=== PATIENT | male | born 1970 | race Caucasian/White ===

== ENCOUNTER 2017-10-23 08:57 | Emergency (ER) | payer BC ==
[2017-10-23] MEDS ORDERED: Albuterol 0.083% Inhal Sol (2.5 mg/3 mL) UD IH STA (10:08)
--- NOTE | 2017-10-23 10:33 | ED PDOC ---
Arrival/HPI - General Chief Complaint: Flu-like Symptoms Time Seen by Provider: 10/23/17 09:28 Historian: Patient - History of Present Illness Narrative History of Present Illness (Text): 10/23/17 10:33 A 47 year old male presents to the emergency department for evaluation of cold symptoms since yesterday. Patient reports symptoms associated with body aches, chills, mild headache and productive cough with yellow sputum. Patient denies any fever, drooling, shortness of breath, wheezing, abdominal pain, vomiting, diarrhea or any other complaints at this time. Time/Duration: Other (yesterday) Symptom Onset: Sudden Symptom Course: Unchanged Activities at Onset: Rest Context: Home Past Medical History - Provider Review Nursing Documentation Reviewed: Yes - Psychiatric Hx Substance Use: No - Anesthesia Hx Anesthesia: No Hx Anesthesia Reactions: No Hx Malignant Hyperthermia: No Family/Social History - Physician Review Nursing Documentation Reviewed: Yes Family/Social History: No Known Family HX Smoking Status: Never Smoked Hx Alcohol Use: Yes Frequency of alcohol use: Socially Hx Substance Use: No Allergies/Home Meds Allergies/Adverse Reactions: Allergies No Known Allergies Allergy (Verified 10/23/17 09:30) Review of Systems - Physician Review All systems were reviewed & negative as marked: Yes - Review of Systems Constitutional: Other (chills; body aches). absent: Fevers Respiratory: Cough (productive cough with yellow sputum). absent: SOB, Wheezing Gastrointestinal: absent: Abdominal Pain, Diarrhea, Vomiting Neurological: Headache (mild) Physical Exam Vital Signs Reviewed: Yes Vital Signs Temp Pulse Resp BP Pulse Ox 10/23/17 12:36 98.8 F 103 H 18 120/70 96 10/23/17 11:12 99.9 F H 138 H 20 119/72 96 10/23/17 11:00 99.9 F H 138 H 20 119/72 96 10/23/17 08:58 98.9 F 115 H 20 139/96 H 95 Temperature: Afebrile Blood Pressure: Hypertensive Pulse: Tachycardic Respiratory Rate: Normal Appearance: Positive for: Well-Appearing, Non-Toxic, Comfortable Pain Distress: Mild Mental Status: Positive for: Alert and Oriented X 3 - Systems Exam Head: Present: Normocephalic Conjunctiva: Present: Normal Ears: Present: NORMAL TM Mouth: Present: Moist Mucous Membranes Pharnyx: Present: ERYTHEMA (mild B/L). No: EXUDATE, TONSILS ENLARGED Nose (Internal): Present: Rhinorrhea (scant clear B/L with congestion) Neck: Present: Trachea Midline. No: Meningeal Signs, JVD, Bruit Respiratory/Chest: Present: Wheezes (scattered bibasilar wheezing). No: Respiratory Distress, Accessory Muscle Use, Decreased Breath Sounds, Rales, Rhonchi, Tachypneic Cardiovascular: Present: Regular Rate and Rhythm, Normal S1, S2. No: Murmurs Abdomen: Present: Normal Bowel Sounds. No: Tenderness, Distention, Peritoneal Signs, Rebound, Guarding Back: No: CVA Tenderness Upper Extremity: Present: Normal ROM Lower Extremity: Present: Normal ROM. No: Edema, CALF TENDERNESS Neurological: Present: GCS=15, Speech Normal Skin: Present: Warm, Dry, Normal Color. No: Rashes Psychiatric: Present: Alert, Oriented x 3, Normal Insight, Normal Concentration Medical Decision Making ED Course and Treatment: 10/23/17 10:31 Impression: A 47 year old male with body aches, chills, mild headache, productive cough and cold. Plan: -- chest xray -- Influenza A B -- Albuterol, Motrin, Prednisone -- Reassess and disposition Progress Notes: On re-eval, pt reports moderate improveemnt in sx after ED tx. Pt is afebrile, hemodynamicaly stable. Non-toxic. Tolerate Po well in ED. Neck: Supple, (-) meningeal sign ENT: no acute findings Lungs: CTA B/L, Bs equal B/L. Abd: benign. back: (-) CVA tenderness. Neurological intact. CXR review (-) consolidation Influenza A (+) Pt ahs clinical findings c/w influenza Pt advised,. ref. to f/u with PMD in 2-3 days for re-eavl. return to ED if any worsening or new changes. 10/23/17 12:30 chest xray: Creator : Henry Rodríguez MD IMPRESSION: No active disease. - Lab Interpretations Lab Results: Lab Results 10/23/17 10:32: Influenza Typ A,B (EIA) Pos for influenza a H I have reviewed the lab results: Yes - RAD Interpretation Radiology Orders: 10/23/17 10:07 CHEST TWO VIEWS (PA/LAT) [RAD] Stat - Medication Orders Current Medication Orders: Discontinued Medications Albuterol Sulfate (Albuterol 0.083% Inhal [place] (2.5 Mg/3 Ml) Ud) 2.5 mg IH STAT STA Stop: 10/23/17 10:09 Last Admin: 10/23/17 10:30 Dose: 2.5 mg Sodium Chloride (Sodium Chloride 0.9%) 1,000 mls @ 999 mls/hr IV .Q1H1M STA Stop: 10/23/17 12:31 Last Admin: 10/23/17 12:04 Dose: 999 mls/hr eMAR Start Stop Document 10/23/17 12:04 EQ (Rec: 10/23/17 12:04 EQ [id number]) Intravenous Solution Start Date 10/23/17 Start Time 12:04 Ibuprofen (Motrin Tab) 600 mg PO STAT STA Stop: 10/23/17 10:09 Last Admin: 10/23/17 10:30 Dose: 600 mg MAR Pain/Vitals Document 10/23/17 10:30 EQ (Rec: 10/23/17 10:30 EQ [id number]) Pain Reassessment Is This A Pain ReAssessment? No Sleep Is patient sleeping during reassessment? No Presence of Pain Presence of Pain Yes Pain Scale Used Pain Scale Used Numeric Oseltamivir Phosphate (Tamiflu Cap) 75 mg PO STAT STA PRN Reason: Protocol Stop: 10/23/17 11:32 Last Admin: 10/23/17 12:06 Dose: 75 mg Comments: unable to scan, Linda Loza aware. Prednisone (Prednisone Tab) 60 mg PO STAT STA Stop: 10/23/17 10:09 Last Admin: 10/23/17 10:30 Dose: 60 mg - Scribe Statement The provider has reviewed the documentation as recorded by the Zachary Kc Provider Scribe Attestation: All medical record entries made by the Coreyibdana were at my direction and personally dictated by me. I have reviewed the chart and agree that the record accurately reflects my personal performance of the history, physical exam, medical decision making, and the department course for this patient. I have also personally directed, reviewed, and agree with the discharge instructions and disposition. Disposition/Present on Arrival - Present on Arrival Any Indicators Present on Arrival: No History of DVT/PE: No History of Uncontrolled Diabetes: No Urinary Catheter: No History of Decub. Ulcer: No History Surgical Site Infection Following: None - Disposition Have Diagnosis and Disposition been Completed?: Yes Diagnosis: Influenza A Disposition: HOME/ ROUTINE Disposition Time: 12:06 Patient Plan: Discharge Condition: STABLE Discharge Instructions (ExitCare): Influenza (ED) Print Language: ALBANIAN Additional Instructions: ENCOURAGE FLUIDS BEDREST FOR 1-2 DAYS TAKE MEDICATION PRESCRIBED FOLLOW UP WITH PMD IN 2-3 DAYS FOR RE-EVALUATION. RETURN TO ED IF ANY WORSENING OR NEW CHANGES. Prescriptions: Albuterol HFA [Ventolin HFA 90 mcg/actuation (8 g)] 1 puff IH Q6 #1 inhaler Oseltamivir Phosphate [Tamiflu] 75 mg PO BID #10 capsule Prednisone [Deltasone] 40 mg PO DAILY #6 tablet Promethazine/Codeine [Phenergan/Codeine Oral Syrup] 10 ml PO TID #90 ml Referrals: Zoltan Mcfarland MD [Family Provider] - Follow up with primary Forms: [employer] (Bhutanese), [employer] (Danish), WORK NOTE
[2017-10-23 11:13] VITALS: O2SAT 96
[2017-10-23] MEDS ORDERED: Sodium Chloride 0.9% 1,000 ML IV STA (11:31)
--- NOTE | 2017-10-23 12:28 | RAD ---
HISTORY: Cough COMPARISON: No prior. TECHNIQUE: Chest PA and lateral FINDINGS: LUNGS: No active pulmonary disease. PLEURA: No significant pleural effusion identified. No pneumothorax apparent. CARDIOVASCULAR: Normal. OSSEOUS STRUCTURES: No significant abnormalities. VISUALIZED UPPER ABDOMEN: Normal. OTHER FINDINGS: None. IMPRESSION: No active disease.
[2017-10-23 12:37] VITALS: BP 120/70; PULSE 103; RESP 18; TEMP 98.8
== END 2017-10-23 12:59 | disposition home or self-care (01) ==
LOC: ED 08:57
DX: J10.1 Influenza due to other identified influenza virus with other respiratory manifestations (principal)
CPT/HCPCS: 71046; 87804; 99284; J7040